=== PATIENT | male | born 1935 | race Caucasian/White ===

== ENCOUNTER → 2016-06-25 | Outpatient (CLI) | payer OTHER, MEDICARE | LOC: FIMAGING 14:33 | PROVIDERS: ATTEND Neurological Surgery | DX: M51.36 Other intervertebral disc degeneration, lumbar region (principal); M48.06 Spinal stenosis, lumbar region; M99.73 Connective tissue and disc stenosis of intervertebral foramina of lumbar region ==

== ENCOUNTER 2016-07-03 11:58 | Emergency (ER) | payer OTHER, MEDICARE ==
[2016-07-03 12:35] VITALS: PULSE 79; RESP 18; TEMP 97.5; O2SAT 95
--- NOTE | 2016-07-03 13:01 | UCPHY ---
H & P Time Seen by Provider: 07/03/16 12:52 Patient Type: Established HPI/ROS: This patient reports onset of the rash to the right chest over the past 48 hours. He describes initial burning discomfort of mild intensity followed by onset of red bumpy rash. The intensity discomfort as 4/10. He notes no associated symptoms. He has never had this rash before. The rash is isolated to the right cezar thorax. ROS: No fevers or chills. He reports no headache. No confusion. No other neuro symptoms. No nausea vomiting or other GI symptoms. 7 point ROS is otherwise negative. Past Medical/Surgical History: History of chickenpox as a child. Hypertension Quad bypass No previous zoster Smoking Status: Former smoker Physical Exam: Physical Exam Vital signs are normal. General: No acute distress HEENT: Atraumatic. Oropharynx: No intraoral lesions. No lip lesions. Eyes: Pupils equal and react to light. Extraocular motions are intact. Lungs: No respiratory distress. Cardiac: Brisk capillary refill is intact throughout. Skin: Patient has erythematous papular rash with a few vesicular lesions in the right cezar thorax in a dermatomal distribution. No petechia or purpura. Neuro: Alert and oriented x3 with no sensorimotor deficits. Initial differential diagnosis: Zoster, contact dermatitis, nonspecific rash Constitutional: Initial Vital Signs Temperature (C) 36.4 C 07/03/16 12:33 Heart Rate 79 07/03/16 12:33 Respiratory Rate 18 07/03/16 12:33 O2 Sat (%) 95 07/03/16 12:33 O2 Delivery Mode Room Air Allergies/Adverse Reactions: No Known Allergies Allergy (Unverified 09/03/15 08:05) Home Medications: Medication Instructions Recorded Amlodipine/Atorvastatin 09/03/15 [Amlodipine-Atorvast 10-10 mg] Desloratadine 09/03/15 Fenofibrate [Tricor] 09/03/15 Irbesartan [Avapro 75 mg (*)] 09/03/15 Junivia 09/03/15 Metroporpl 09/03/15 Rosuvastatin Calcium [Crestor 40mg 09/03/15 (RX)] Albuterol Hfa Anes Only [Proair 07/03/16 Hfa Icu (*)] Atorvastatin Calcium [Lipitor 10 07/03/16 mg (*)] Fluticasone/Vilanterol [Breo 07/03/16 Ellipta 100-25 Mcg INH] Montelukast Sodium [Singulair 10 07/03/16 mg (*)] Pantoprazole Sodium [Protonix 40mg 07/03/16 (*)] Valacyclovir HCl [Valtrex] 1,000 mg PO TID #21 tab 07/03/16 MDM/Departure - [facility] ED Course/Re-evaluation: I counseled patient regarding zoster. - Depart Disposition: Home, Routine, Self-Care Clinical Impression: Zoster Qualifiers: Herpes zoster complications: without complications Qualified Code(s): B02.9 - Zoster without complications Condition: Good Instructions: Shingles (ED) Additional Instructions: Diagnosis: Zoster (shingles) Plan: Valtrex antiviral Tylenol for discomfort if needed Return for any significant worsening despite the treatment plan. Follow up with primary care physician for any ongoing symptoms despite the treatment plan. Prescriptions: Valacyclovir HCl [Valtrex] 1,000 mg PO TID #21 tab Referrals: Cleopatra Schwarz MD [Primary Care Provider] - As per Instructions - PQRS PQRS Measurement: 134: Depression screening and followup, PRIME MD-PHQ2 (12 years and older) Over the last 2 weeks, how often have you been bothered by any of the following problems? 1. Feeling down, depressed, or hopeless? 2. Little interest or pleasure in doing things? Patient answered no to both 1 and 2 130: Documentation of medications. Reviewed all patient medications, doses, route and frequency. 226: Do you smoke? [No.] 47: 65 and older: Advanced care planning. Patient designates surrogate decision maker as spouse 51: 18 years old and older with diagnosis of COPD, spirometry performance. NA 52: 18 years old and older with COPD and symptoms of COPD or FEV1<60% predicted prescribed a B Agonist. NA
== END 2016-07-03 13:08 | disposition home or self-care (01) ==
LOC: CED 11:58
DX: B02.9 Zoster without complications (principal); I10 Essential (primary) hypertension; Z95.1 Presence of aortocoronary bypass graft; Z87.891 Personal history of nicotine dependence
CPT/HCPCS: 99214-PO; G0463-PO

== ENCOUNTER → 2016-10-01 | Outpatient (CLI) | payer OTHER, MEDICARE | LOC: BHFA 10:45 | PROVIDERS: ATTEND Internal Medicine Cardiovascular Disease | DX: I35.0 Nonrheumatic aortic (valve) stenosis (principal) ==

== ENCOUNTER → 2018-04-02 | Outpatient (CLI) | payer OTHER, MEDICARE | LOC: BHFA 15:30 | PROVIDERS: ATTEND Internal Medicine Cardiovascular Disease | DX: I73.9 Peripheral vascular disease, unspecified (principal) ==

== ENCOUNTER → 2018-09-16 | Outpatient (CLI) | payer OTHER, MEDICARE | LOC: EMCIMAGING 17:15 ==

== ENCOUNTER 2018-10-15 09:59 | Day surgery (SDC) | payer OTHER, MEDICARE | END 2018-10-15 15:55 | disposition home or self-care (01) | LOC: FSGY 09:59 ==